=== PATIENT | male | born 2000 | race Caucasian/White ===

== ENCOUNTER 2023-01-03 11:59 | Emergency (ER) | payer SELFPAY | END 2023-01-03 13:08 | disposition home or self-care (01) | LOC: JD.ED 11:59 | DX: S09.93XA Unspecified injury of face, initial encounter (principal); F17.210 Nicotine dependence, cigarettes, uncomplicated; W22.8XXA Striking against or struck by other objects, initial encounter; Y92.830 Public park as the place of occurrence of the external cause | CPT/HCPCS: 99282; 99283 ==